=== PATIENT | female | born 1970 | race Two or more races ===

== ENCOUNTER 2021-04-07 10:31 | Emergency (ER) | payer OTHER ==
[~2021-04-07] VITALS: Ht 162.6 cm; Wt 62.6 kg
[2021-04-07 10:49] VITALS: BP 143/108
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
[2021-04-07] MEDS ORDERED: LIDOCAINE 1% INJ 50 ML MDV IJ ONE ×2 (11:12→11:30)
--- NOTE | 2021-04-07 11:32 | NUR ---
MARITO PIERRE AT PT'S BEDSIDE DOING WOUND CARE; PT TOLERATING WELL
[2021-04-07] MEDS ORDERED: TDAP [DIPH/PERTUSSIS/TET] 0.5 ML VIAL IM ONE ×2 (12:00→12:03)
--- NOTE | 2021-04-07 12:09 | NUR ---
Patient discharged to home in stable condition. Written and verbal after care instructions given. Patient verbalizes understanding of instruction.
== END 2021-04-07 12:09 | disposition home or self-care (01) ==
LOC: ER 10:37
DX: S61.213A Laceration without foreign body of left middle finger without damage to nail, initial encounter (principal); F17.200 Nicotine dependence, unspecified, uncomplicated; Z60.2 Problems related to living alone; W26.8XXA Contact with other sharp object(s), not elsewhere classified, initial encounter; Y93.K1 Activity, walking an animal; Y92.89 Other specified places as the place of occurrence of the external cause; Y99.8 Other external cause status
CPT/HCPCS: 12001; 90471; 90715; 99283; A6403 ×2; J3490